=== PATIENT | female | born 1945 | race Caucasian/White ===

== ENCOUNTER 2023-03-18 08:00 | Outpatient (CLI) | payer MEDICARE ==
--- NOTE | 2023-04-07 11:37 | XRAY Report ---
PROCEDURE: Knee 3 View LT INDICATIONS: LEFT KNEE PAIN TECHNIQUE: 3 views of the left knee(s) were acquired. COMPARISON: None. FINDINGS: Bones: No fractures or dislocations. No suspicious bony lesions. Tricompartmental joint space harpreet rowing with associated osteophytosis. Soft tissues: Small knee joint effusion. No suspicious soft tissue calcifications or masses. IMPRESSION: No acute bony abnormality. Mild to moderate tricompartmental osteoarthritis. Kellgren-Franklyn scale of osteoarthritis: 2. Reviewed by: Zeke Brown on 04/07/2023 11:36 AM PDT Approved by: Zeke Brown on 04/07/2023 11:36 AM PDT Station ID: [id number]
== END 2023-04-07 23:59 | disposition home or self-care (01) ==
LOC: DI.WOS 08:00
PROVIDERS: ATTEND Physician Assistant Surgical
DX: M17.12 Unilateral primary osteoarthritis, left knee (principal)

== ENCOUNTER 2023-04-19 10:27 | Outpatient (CLI) | payer MEDICARE ==
--- NOTE | 2023-04-19 19:03 | MRI Report ---
PROCEDURE: KNEE WO - LT INDICATIONS: TIBIA FX TECHNIQUE: Noncontrast sagittal PD fast spin echo and T2 fast spin echo with fat saturation, sagittal 3-D spoile d GE with fat saturation; coronal T1 spin echo and PD fast spin echo with fat saturation, and axial P D fast spin echo with fat saturation through the knee. COMPARISON: Left knee radiographs 04/07/2023 FINDINGS: Image quality: Excellent. Anterior cruciate ligament: Intact. Posterior cruciate ligament: Intact. Medial collateral ligament: Intact. Lateral collateral ligament: Intact. Medial meniscus: Small inferiorly displaced meniscal flap tear is seen at the junction of the nail kegger ior horn and body of the medial meniscus with meniscal tissue extending to the medial tibial gutter. Lateral meniscus: Complex degenerative tearing of the lateral meniscus with horizontal components of the posterior horn and body and probable vertical longitudinal component at the anterior horn and an terior root attachment. Medial and lateral tendons: The semimembranosus tendon insertions appear intact. Visualized portion s of the pes anserinus tendons appear normal. The popliteus tendon appears intact. Iliotibial band appears normal. Anterior structures: The patellar tendon and the distal quadriceps tendon appear intact. No patellar subluxation. No femoral trochlear dysplasia or ventral trochlear prominence. No edema in the infra patellar fat pad. Bones: Mildly comminuted fracture of the lateral tibial plateau is seen with moderate surrounding os seous edema. Multiple fracture lines extend to the lateral tibial plateau articular surface without s ignificant step off or articular surface depression. Medial femorotibial cartilage: Mild partial thickness cartilage thinning throughout the weightbearin g portion of the medial femorotibial compartment Lateral femorotibial cartilage: Partial-thickness cartilage irregularity is seen at the central post erior portion of the lateral tibial plateau. Patellofemoral cartilage: Moderate to high-grade cartilage irregularity throughout the patellar cart ilage with associated subchondral edema. Soft tissues: There is a medium-sized joint effusion. There is a trace medial popliteal cyst. The m usculature surrounding the knee is normal in bulk. Nonspecific soft tissue edema seen surrounding the knee. Edema within the popliteus muscle is most likely reactive. IMPRESSION: 1.Comminuted nondepressed fracture of the lateral tibial plateau with moderate surrounding osseous ed brandee. 2.Complex degenerative tearing of the lateral meniscus with horizontal components of the posterior ho rn and body and vertical longitudinal components at the anterior horn and anterior root attachment. 3.Small anteriorly displaced meniscal flap tear at the junction of the posterior horn and body of the medial meniscus with meniscal tissue extending into the medial tibial gutter. 4.[id number] tricompartmental chondromalacia. 5.Moderate joint effusion. Reviewed by: Dima Barnes MD on 04/19/2023 7:01 PM PDT Approved by: Dima Barnes MD on 04/19/2023 7:01 PM PDT Station ID: [id number]
== END 2023-04-19 10:28 | disposition home or self-care (01) ==
LOC: DI 10:27
PROVIDERS: ATTEND Physician Assistant Surgical
DX: S82.142A Displaced bicondylar fracture of left tibia, initial encounter for closed fracture (principal); S83.272A Complex tear of lateral meniscus, current injury, left knee, initial encounter; S83.242A Other tear of medial meniscus, current injury, left knee, initial encounter; M94.262 Chondromalacia, left knee; M25.462 Effusion, left knee

== ENCOUNTER 2023-05-26 08:00 | Outpatient (CLI) | payer MEDICARE ==
--- NOTE | 2023-05-26 21:16 | XRAY Report ---
PROCEDURE: Knee 4 View LT INDICATIONS: LEFT TIBIA FRACTURE TECHNIQUE: 4 views of the knee(s) were acquired. COMPARISON: 03/30/2023 and MRI dated 04/19/2023. FINDINGS: Bones: Subtle, nondisplaced lateral tibial plateau fracture is visualized. Best seen on the oblique view. No other fracture visualized. Tricompartmental degenerative changes of the left knee redemonstr ated. No suspicious osseous lesion. Soft tissues: Small knee joint effusion. No suspicious soft tissue calcifications or masses. IMPRESSION: 1. Subtle, nondisplaced lateral tibial plateau fracture is again noted. 2. Moderate tricompartmental osteoarthrosis. 3. Small joint effusion. Reviewed by: Wyatt Olivares MD on 05/26/2023 9:15 PM PST Approved by: Wyatt Olivares MD on 05/26/2023 9:15 PM PST Station ID: [id number]
== END 2023-05-26 23:59 | disposition home or self-care (01) ==
LOC: DI.WOS 08:00
PROVIDERS: ATTEND Physician Assistant Surgical
DX: S82.145A Nondisplaced bicondylar fracture of left tibia, initial encounter for closed fracture (principal); M17.12 Unilateral primary osteoarthritis, left knee; M25.462 Effusion, left knee

== ENCOUNTER 2023-06-23 08:00 | Outpatient (CLI) | payer MEDICARE ==
--- NOTE | 2023-06-23 19:09 | XRAY Report ---
PROCEDURE: Knee 4 View LT INDICATIONS: LEFT TIBIAL PLATEAU FRACTURE TECHNIQUE: 3 views of the knee was obtained. COMPARISON: None FINDINGS: Bones: No fractures or dislocations. No suspicious bony lesions. Previously noted lateral tibial pl ateau fracture is not well depicted currently. Mild medial compartment joint space narrowing. No dena inal osteophyte Soft tissues: No knee joint effusion. No suspicious soft tissue calcifications or masses. IMPRESSION: Healed lateral tibial plateau fracture without sequelae Reviewed by: Wade Aranda MD on 06/23/2023 6:08 PM [facility] Approved by: Wade Aranda MD on 06/23/2023 6:08 PM [place] Station ID: [id number]
== END 2023-06-23 23:59 | disposition home or self-care (01) ==
LOC: DI.WOS 08:00
PROVIDERS: ATTEND Physician Assistant Surgical
DX: S82.102D Unspecified fracture of upper end of left tibia, subsequent encounter for closed fracture with routine healing (principal)

== ENCOUNTER 2023-11-03 09:56 | Outpatient (CLI) | payer MEDICARE | END 2023-11-03 23:59 | disposition short-term general hospital (02) | LOC: EMS 09:56 | DX: R06.00 Dyspnea, unspecified (principal); R06.89 Other abnormalities of breathing; R22.1 Localized swelling, mass and lump, neck | CPT/HCPCS: A0425; A0429 ==